=== PATIENT | female | born 1935 | race Caucasian/White ===

== ENCOUNTER 2017-02-06 10:37 | Inpatient (IN) ==
[2017-02-06] MEDS ORDERED: HYDROmorphone 2 MG/1 ML VIAL IV STA (11:16)
[2017-02-06] MEDS ORDERED: ONDANSETRON 4 MG/2 ML VIAL IV STA (11:16)
--- NOTE | 2017-02-06 11:20 | Emergency Department Note ---
Arrival - Arrival Chief Complaint: Fall Stated Complaint: fall; leg pain ED Nursing Triage Note: pt brought by EMS for evaluation of left leg pain after a fall during the night while in the bathroom. laceration to left lower leg, bandaged by pt's . LLE appears slightly shortened and ext. rotated. morphine 10mg given by EMS. Mode of Arrival: Stretcher Limitations: Language Barrier Source: Significant other Time Seen by Provider: 02/06/17 11:15 - History of Present Illness HPI Narrative: This 81-year-old white female presents approximately 12 hours after a fall in which she injured her left lower extremity. She has not been able to weight- bear on it since. In the fall she did incur a vertical skin tear along the anterior compartment of the left lower extremity. She denies any other injuries but has had a history of multiple fractures of hips, pelvis, shoulder, humerus in the last few years from falls. Although uncomfortable she appears in no acute distress. Her family physician is Dr. romo. Onset (ago): hour(s) (Incident occurred 12 hours ago) Allergies/Adverse Reactions: Allergies Allergy/AdvReac Type Severity Reaction Status Date / Time No Known Allergies Allergy Verified 02/06/17 10:51 Home Medications: Home Medications Medication Instructions Recorded Confirmed Type Cetirizine Tab [ZyrTEC Tab] 10 mg PO BEDTIME PRN 09/13/15 02/06/17 History Theophylline ER Cap (24 Hr) 300 mg PO DAILY 09/13/15 02/06/17 History [Armani-24] traZODone [Desyrel] 150 mg PO BEDTIME 09/13/15 02/06/17 History Potassium Chloride Cap/Tab [Micro 8 meq PO DAILY #30 capsule 12/19/15 02/06/17 Rx K] cycloSPORINE OPH EMUL [Restasis] 1 drop BOTH EYES BID 11/22/16 02/06/17 History Gabapentin Cap/Tab [Neurontin 300 mg PO BEDTIME 11/23/16 02/06/17 History Cap/Tab] Montelukast Tab [Singulair Tab] 10 mg PO BEDTIME 11/23/16 02/06/17 History HYDROcodone/ACETAMIN 10-325 [[place] 1 tablet PO TID PRN tablet 12/25/16 Rx 10-325] Albuterol Sulfate [Ventolin HFA] 2 puff INH Q4H PRN 02/06/17 02/06/17 History Atorvastatin [Lipitor] 20 mg PO BEDTIME 02/06/17 02/06/17 History Duloxetine HCl [Duloxetine] 30 mg PO DAILY 02/06/17 02/06/17 History Review of System - Review of System 12 point system: reviewed and no additional remarkable complaints except as stated - Review of System Constitutional: Present: as per HPI Musculoskeletal: Present: as per HPI Medical,Surgical,& Family Hx - Medical History Cardio: History of: Cardiac Dysrhythmia, Hypertension No history of: Aneurysm, Cerebrovascular Disease, Congenital Heart Disease, CHF, CAD, [place], Pacemaker, PVD, Valvular Heart Disease, Cardiovascular Problems Psychological: History of: Anxiety Disorders, Psychiatric/Substance Abuse Tx, Psychiatric Problems (depressed mood aeb helplessness, hopelessness, and poor coping skills) No history of: Behavior Problems, Violent Behavior Neurology: No history of: Brain Aneurysm, Cerebral Hemorrhage, Cerebrovascular Accident , Cerebral Palsy, Dementia, Migraine, Multiple Sclerosis, Parkinson's Disease, Peripheral Neuropathy, Seizures, TIA, Vertigo, Neurologocal Cancer Endocrine: History of: Dyslipidemia Rheumatology: History of;: Rheumatoid Arthritis Respiratory: History of: Asthma, Bronchitis, COPD, Pneumonia (in the past) No history of: Intubation, Obstructive Sleep Apnea, Pulmonary Embolism, Pulmonary Hypertension, Lung Cancer, Respiratory Problems Renal: No history of: Renal (Kidney) Cancer, Dialysis, Renal Failure, Renal Problems Genitourinary: No history of: Bladder Problem, Kidney Stones, Recurring Urinary Tract Infections, Genitourinary Cancer, Problems Gastrointestinal: History of: Hemorrhoids No history of: Bowel Obstruction, Clostridium Difficile, Crohn's Disease, Diverticulitis/ Diverticulosis, Esophageal Varices, GERD, Gastrointestinal Bleed , Hematochezia, Hepatitis, Liver Problems, Pancreatitis, Polyps, Ulcerative Colitis, Gastrointestinal Cancer, GI Problems Musculoskeletal: History of: Back/Neck Problems, Degenerative Disk Disease, Osteoporosis, Musculoskeletal Problems (MULTI FUSIONS AND BACK PROCEDURES) No history of: Musculoskeletal Cancer Hematology: History of: Anemia Reproductive: No history of: Abnormal Pap Smear, Breast Cancer, Endometriosis, Ectopic , Ovarian Cysts, Complication, Sexually Transmitted Disorders , Reproductive Cancer, Reproductive Problems - Surgical History Cardiac Surgeries: Patient Denies: Femoral-Popliteal Bypass Graft, Cardiac Catheterization, Cardiac Surgery, Carotid Endarterectomy, Internal Defibrillator, Vascular Access Devices Thoracic Surgeries: Patient denies;: Kidney (Renal Surgery), Lithotripsy, Nephrectomy, Lobectomy Neurologic Surgeries: Patient denies: Brain Aneurysm, Cerebral Hemorrhage, Neurologic Surgery HEENT Surgeries: Surgical HX of: Eye Surgery (bilateral cataract surgery), Tonsilectomy & Adenoidectomy Patient denies: Carotid Endarterectomy Abdominal Surgeries: Surgical HX of: Abdominal Surgery, Appendectomy, Colonoscopy, EGD Patient denies: Cholecystectomy, Gastric Bypass Surgery, Hernia Repair, Splenectomy Reproductive Surgeries: Surgical HX of;: Gynecologic Surgery, Hysterectomy (1973 ) Patient denies;: Cystoscopy, Genitourinary Surgery Orthopedic Surgeries: Surgical HX of;: Orthopedic Surgery (bilateral knees, right hip) - Family History Family History: Reports;: Family Cancer (sister, brother), Family Diabetes ( sister), Family Heart Disease (brother, mother, father), Family Hypertension ( sister), Family Stroke (mother) - Social History Smoking Status: Never smoker Frequency of Alcohol Use: None Type of Drug Use: None Exam Physical Examination: GENERAL: Frail elderly white female in no acute distress. HEENT: Normocephalic. No trauma. Moist mucous membranes. EOMI. PERRLA. ENT NML NECK: Supple. No adenopathy. CARDIAC: Regular. No murmurs. Heart rate 117 CHEST: Clear to auscultation. No respiratory distress. O2 sat 98% ABDOMEN: Soft. Nontender. Active bowel sounds. EXTREMITIES: No trauma. Left lower extremity shortened and externally rotated with distal pulses intact. No pedal edema. SKIN: No diaphoresis. No rash. NEURO: Alert. Oriented to person and place, time not so well. Motor, sensory, vibratory intact. No focal deficits. Vital Signs: Vital Signs Temperature 98.9 F 02/06/17 10:37 Pulse Rate 117 H 02/06/17 10:37 Respiratory Rate 16 02/06/17 10:37 Blood Pressure 123/75 02/06/17 10:37 O2 Sat by Pulse Oximetry 98 02/06/17 10:37 Course - Reevaluation(s) Reevaluation #1: Discussed with patient the back she has a fracture and will need repair. She last ate last night. - Consultations Consultation #1: Discussed with hospitalist service will admit for perioperative care Consultation #2: Discussed with Dr. Vincent who will repair the hip today. Results - Labs CBC & BMP: 02/06/17 11:27 02/06/17 11:27 Labs: I have reviewed the laboratory and noted the gross normality excepting for the very depressed hematocrit. - Impressions EKG: Sinus tachycardia at 110 normal MI interval and duration left atrial enlargement diffuse nonspecific ST changes no acute injury pattern noted - Diagnostic Findings Procedure: Chest x-ray: image reviewed by me, report reviewed by me (No interval change and chronic interstitial scarring.) Disposition Clinical Impression: left hip fracture, Severe anemia Case discussed with: patient, patient's family Disposition: Still a Patient Condition: Guarded Time of Disposition: 12:04
[2017-02-06 11:30] LABS: Basophils % 0.4 % (0.0-0.8); Eosinophils # 0.1 10*3/uL (0.0-0.87); Eosinophils % 0.6 % (0.00-10.9); Hemoglobin 8.1 GM/DL (12.0-16.0); Immature Granulocytes % 0.6 %; Immature Granulocytes Absolute 0.06 #; Lymphocytes # 1.2 10*3/uL (1.4-4.0); Lymphocytes % 11.4 % (21.3-54.2); Mean Corpuscular HGB Conc 33.8 GM/DL (32-36); Mean Corpuscular Hemoglobin 33 PG (27-34); Mean Corpuscular Volume 97.6 FL (87-102); Monocytes # 1.9 10*3/uL (0.11-0.8); Monocytes % 18.5 % (1.7-12.7); Neutrophils % 68.5 % (38.7-73.9); Platelet Count 196 T/CUMM (130-400); Red Blood Count 2.46 MC/CUMM (3.8-5.5); Red Cell Distribution Width 13.3 % (9.3-17.3); White Blood Count 10.1 T/CUMM (4-12)
[2017-02-06 11:41] LABS: PT Patient Result 10.3 SECS; Partial Thromboplastin Time 28.2 SECS (0-40)
[2017-02-06] MEDS ORDERED: ONDANSETRON 4 MG/2 ML VIAL ONE (11:48)
[2017-02-06] MEDS ORDERED: HYDROmorphone 2 MG/1 ML VIAL ONE (11:48)
[2017-02-06 11:51] LABS: Band Neutrophils 2 % (0-10); Hypochromasia 1+; Lymphocytes 13 % (20-55); Segmented Neutrophils 69 % (50-85); Total Cells Counted 100
--- NOTE | 2017-02-06 11:58 | XRay Report ---
XR hip 2v w pelvis LT Indication: Left hip pain status post fall. Comparison: AP pelvis 11/22/2016. Technique: AP pelvis with additional AP views of the left hip in internal and external rotation. Findings: An acute severely comminuted fracture of the intratrochanteric left hip is demonstrated with moderate varus angulation and moderate displacement of fracture fragments associated. Previous repair of the right hip has occurred with placement of a gamma nail. Osseous structures of the pelvis and lower lumbar spine demonstrate no distinct evidence of acute fracture. Impression: 1. Severely comminuted fracture of the intratrochanteric left hip is present as detailed. 02/06/2017 11:54 AM PROCEDURE INTERPRETED AT [facility] DEPARTMENT OF RADIOLOGY Final Report Signed by: Dr. Phani Starkey
[2017-02-06 12:00] LABS: Bilirubin,Total 0.6 MG/DL (0.2-1.0); Calcium 8.4 MG/DL (8.5-10.1); Osmolality,Calculated 280.5 MOS/KG (273-304); Potassium 4.3 MMOL/L (3.5-5.1)
--- NOTE | 2017-02-06 12:01 | XRay Report ---
XR chest 1V portable Indication: Shortness of breath. Comparison: Chest x-ray 11/22/2016. Technique: Portable AP chest was performed. Findings: The heart size appears within normal limits. Pulmonary vasculature demonstrates no specific abnormality. Hilar structures demonstrate fairly symmetric appearance. The lungs demonstrate interstitial prominence bilaterally stable appearance prior study. Additional calcifications are suggested within the left perihilar region and left infrahilar lung which are little changed from comparison study. Prior vertebroplasty of L1 is stable. No acute fractures are demonstrated. Prior fracture of the right humeral neck is not completely imaged on this study. Additional prior vertebroplasty at T6 is demonstrated. Distal right clavicle fracture is stable. Impression: 1. No active process is clearly demonstrated. 2. Previously demonstrated fracture of the right humeral neck is not included completely on the study. 3. No acute osseous findings are demonstrated. 02/06/2017 11:55 AM PROCEDURE INTERPRETED AT [facility] DEPARTMENT OF RADIOLOGY Final Report Signed by: Dr. Phani Starkey
[2017-02-06 12:15] LABS: Apearance,Urine CLOUDY (Clear); Bacteria,Urine Occasional /HPF (Few); Bilirubin,Urine Negative (Negative); Blood, Urine Negative (Negative); Glucose,Urine (UA) Negative (Negative); Hyaline Casts,Urine 13 /LPF (0-3); Ketones,Urine Negative (Negative); Mucus,Urine Many /LPF (Occasional); Nitrite,Urine Negative (Negative); Protein,Urine Negative; RBC,Urine 20 /HPF (0-4); Urine Color Yellow (Yellow); Urine Specific Gravity 1.023 (1.001-1.035); Urine Urobilinogen < 2.0 EU/DL (0.2-1.0); WBC,Urine 8 /HPF (0-6)
--- NOTE | 2017-02-06 12:32 | EKG Report ---
Stationary ECG Study [facility] ER Test Date: 02/06/2017 11:42:13 AM Pat Name: FREDA AZEVEDO Department: [facility] Gender: F [employer]: : 1935 Requested by: Pete Hawk Order Number: [id number] Reading MD: JUAN ANTONIO ANTONIO Intervals [place] Rate: 110 P: 61 NM: 120 QRS: 98 QRSD: 76 T: 2 QT: 299 QTc: 364 Interpretive Statements SINUS TACHYCARDIA POSSIBLE LEFT ATRIAL ENLARGEMENT BORDERLINE RIGHT AXIS DEVIATION Electronically Signed On 02-06-17 14:12:27 CDT by JUAN ANTONIO ANTONIO [email or web address]
--- NOTE | 2017-02-06 12:52 | Orthopedic Consult Note ---
History of Present Illness Chief complaint: Left hip pain History of present illness: Ms. Haynes is a 81 year old female who had a fall last night resulting in a comminuted left intertrochanteric femur fracture. She was seen in the emergency department with her at her bedside. She complains of left hip pain. Denies any other complaints. States was a mechanical fall. She is a history of multiple falls resulting in a surgical fixation of her right hip 2 years ago and a recent fall in December where she sustained a right proximal humerus fracture. The humerus fracture was treated conservatively. She denies any numbness or tingling. Denies any other complaints. Pain is aggravated with motion and alleviated with immobilization Home Medications Medication Instructions Recorded Confirmed Type Cetirizine Tab [ZyrTEC Tab] 10 mg PO BEDTIME PRN 09/13/15 02/06/17 History Theophylline ER Cap (24 Hr) 300 mg PO DAILY 09/13/15 02/06/17 History [Armani-24] traZODone [Desyrel] 150 mg PO BEDTIME 09/13/15 02/06/17 History Potassium Chloride Cap/Tab [Micro 8 meq PO DAILY #30 capsule 12/19/15 02/06/17 Rx K] cycloSPORINE OPH EMUL [Restasis] 1 drop BOTH EYES BID 11/22/16 02/06/17 History Gabapentin Cap/Tab [Neurontin 300 mg PO BEDTIME 11/23/16 02/06/17 History Cap/Tab] Montelukast Tab [Singulair Tab] 10 mg PO BEDTIME 11/23/16 02/06/17 History HYDROcodone/ACETAMIN 10-325 [[place] 1 tablet PO TID PRN tablet 12/25/16 Rx 10-325] Albuterol Sulfate [Ventolin HFA] 2 puff INH Q4H PRN 02/06/17 02/06/17 History Atorvastatin [Lipitor] 20 mg PO BEDTIME 02/06/17 02/06/17 History Duloxetine HCl [Duloxetine] 30 mg PO DAILY 02/06/17 02/06/17 History Allergies Allergy/AdvReac Type Severity Reaction Status Date / Time No Known Allergies Allergy Verified 02/06/17 10:51 12 point system: reviewed and no additional remarkable complaints except as stated Medical,Surgical,& Family Hx - Medical History Cardio: History of: Cardiac Dysrhythmia, Hypertension No history of: Aneurysm, Cerebrovascular Disease, Congenital Heart Disease, CHF, CAD, [place], Pacemaker, PVD, Valvular Heart Disease, Cardiovascular Problems Psychological: History of: Anxiety Disorders, Psychiatric/Substance Abuse Tx, Psychiatric Problems (depressed mood aeb helplessness, hopelessness, and poor coping skills) No history of: Behavior Problems, Violent Behavior Neurology: No history of: Brain Aneurysm, Cerebral Hemorrhage, Cerebrovascular Accident , Cerebral Palsy, Dementia, Migraine, Multiple Sclerosis, Parkinson's Disease, Peripheral Neuropathy, Seizures, TIA, Vertigo, Neurologocal Cancer Endocrine: History of: Dyslipidemia Rheumatology: History of;: Rheumatoid Arthritis Respiratory: History of: Asthma, Bronchitis, COPD, Pneumonia (in the past) No history of: Intubation, Obstructive Sleep Apnea, Pulmonary Embolism, Pulmonary Hypertension, Lung Cancer, Respiratory Problems Renal: No history of: Renal (Kidney) Cancer, Dialysis, Renal Failure, Renal Problems Genitourinary: No history of: Bladder Problem, Kidney Stones, Recurring Urinary Tract Infections, Genitourinary Cancer, Problems Gastrointestinal: History of: Hemorrhoids No history of: Bowel Obstruction, Clostridium Difficile, Crohn's Disease, Diverticulitis/ Diverticulosis, Esophageal Varices, GERD, Gastrointestinal Bleed , Hematochezia, Hepatitis, Liver Problems, Pancreatitis, Polyps, Ulcerative Colitis, Gastrointestinal Cancer, GI Problems Musculoskeletal: History of: Back/Neck Problems, Degenerative Disk Disease, Osteoporosis, Musculoskeletal Problems (MULTI FUSIONS AND BACK PROCEDURES) No history of: Musculoskeletal Cancer Hematology: History of: Anemia Reproductive: No history of: Abnormal Pap Smear, Breast Cancer, Endometriosis, Ectopic , Ovarian Cysts, Complication, Sexually Transmitted Disorders , Reproductive Cancer, Reproductive Problems - Surgical History Cardiac Surgeries: Patient Denies: Femoral-Popliteal Bypass Graft, Cardiac Catheterization, Cardiac Surgery, Carotid Endarterectomy, Internal Defibrillator, Vascular Access Devices Thoracic Surgeries: Patient denies;: Kidney (Renal Surgery), Lithotripsy, Nephrectomy, Lobectomy Neurologic Surgeries: Patient denies: Brain Aneurysm, Cerebral Hemorrhage, Neurologic Surgery HEENT Surgeries: Surgical HX of: Eye Surgery (bilateral cataract surgery), Tonsilectomy & Adenoidectomy Patient denies: Carotid Endarterectomy Abdominal Surgeries: Surgical HX of: Abdominal Surgery, Appendectomy, Colonoscopy, EGD Patient denies: Cholecystectomy, Gastric Bypass Surgery, Hernia Repair, Splenectomy Reproductive Surgeries: Surgical HX of;: Gynecologic Surgery, Hysterectomy (1973 ) Patient denies;: Cystoscopy, Genitourinary Surgery Orthopedic Surgeries: Surgical HX of;: Orthopedic Surgery (bilateral knees, right hip) - Family History Family History: Reports;: Family Cancer (sister, brother), Family Diabetes ( sister), Family Heart Disease (brother, mother, father), Family Hypertension ( sister), Family Stroke (mother) - Social History Smoking Status: Never smoker Frequency of Alcohol Use: None Type of Drug Use: None Exam - Constitutional Vitals: Period Temp Pulse Resp BP Sys/[place] Pulse Ox Last 24 Hr 98.9 F-98.9 F 117-117 16-16 123-123/75-75 98 General appearance: under weight, other (Chronically ill-appearing) - Head Head exam: Present: normal inspection, normocephalic, atraumatic - Eye Pupils: Present: FER - ENT ENT exam: Present: normal exam - Neck Neck exam: Present: normal inspection. Absent: tenderness - Respiratory Respiratory exam: Absent: accessory muscle use, wheezes - Cardiovascular Cardiovascular exam: Present: regular rate and rhythm - GI/Abdominal GI/Abdominal exam: Absent: distended, firm - Extremities Exam Extremities exam: Present: normal inspection (Bilateral upper extremity: Good active range of motion fingers and wrist. Compartments are soft. Sensation is intact. Pulses intact distally. Nontender to palpation) - Expanded Left Lower Hip exam: Absent: normal inspection (Left leg held in a shortened and externally rotated position compared to the right. Compartments are soft. Sensations intact. Good active range of motion foot and ankle. Capillary refill brisk) - Neurological Exam Neurological exam: Present: alert, oriented X3, CN II-XII intact - Psychiatric Psychiatric exam: Present: normal affect, normal mood - Skin Skin exam: Present: normal color (Small skin tear to left lower leg) Results - Labs CBC & BMP: 02/06/17 11:27 02/06/17 11:27 Lab Results: I have reviewed the past 24 hour labs - Diagnostic Findings Procedure: X-ray: image reviewed by me, report reviewed by me Assessment and Plan (1) Fracture, intertrochanteric, left femur Status: Acute Assessment and plan: Discussed with the patient and her her significantly comminuted intertrochanteric left femur fracture. Recommend surgical fixation to stabilize a fracture to allow for better healing of the fracture, weightbearing , and hygiene purposes. Discussed the surgery in detail with intramedullary nail as well as the risks of the procedure. Risks include but are not limited to infection, bleeding, hardware failure, malunion, nonunion, need for further surgery, neurovascular injury both local remote, as well as the risk of anesthesia including heart attack, stroke, . They gave full understanding to this, all questions were answered to their satisfaction, they agreed to undergo surgical fixation of her left intertrochanteric femur fracture Because she has not eaten since last night plan for surgical fixation today I discussed with anesthesia starting blood products due to her anemia Discussed with the patient and her probable discharge plan for swing bed due to her multiple falls and to improve her strength and mobility upon discharge from the hospital Current Visit: Yes (2) Anemia Status: Chronic Current Visit: No (3) Fall Status: Acute Current Visit: No
[2017-02-06] MEDS ORDERED: SODIUM CHLORIDE 0.9% 250 ML IV PRN (13:08)
--- NOTE | 2017-02-06 13:24 | Hospitalist History & Physical ---
Assessment and Plan (1) Fracture, intertrochanteric, left femur Status: Acute Assessment and plan: Pt to undergo repair of left femur fracture. Surgery following. Current Visit: Yes (2) Asthma Status: Chronic Assessment and plan: Pt. is wearing supplemental O2. Not in any acute distress. Home meds to be restarted. After surgery, respiratory status will be reevaluated. Current Visit: No (3) Chronic low back pain Status: Chronic Current Visit: No (4) Debility Status: Chronic Assessment and plan: Consult PT/OT for evaluation. Consult case management for swingbed/rehab placement upon discharge. Current Visit: No History of Present Illness Chief complaint: left hip pain after fall History of present illness: Ms. Haynes is a 81 year old frail white female with a history significant for multiple falls, hypertension, dysrhythmia, anxiety, depression, dyslipidemia, rheumatoid arthritis, asthma, bronchitis, COPD, and pneumonia that presented to the ED today via EMS for complaints of left hip pain after fall yesterday. The patient's is at her bedside and provides some of her history. According to , patient is 2.5 status post recent fall and right humerus fracture. Pt. also had her right hip replaced 2 years ago. The reports that yesterday, the patient was attempting to return to be after leaving the bathroom when she fell. She denies any syncopal episode before the fall. She also denies any head injuries. Patient did suffer a laceration to the left lateral leg and her bandaged. On examination in the ED, the patient was not in any acute distress but confirmed pain. Left lower extremity appears slightly externally rotated. Hip x-ray revealed severely communicated fracture of the intra-trochanteric left hip. Surgery was notified by the ER physician and evaluated the patient. She will be taken to surgery and risks and benefits have been detailed. Pt. has a low risk of major cardiac event. Pt's case has been discussed with Dr. Campbell and Dr. Stafford and the patient will be admitted to the hospitalist service for treatment. Home Medications Medication Instructions Recorded Confirmed Type Cetirizine Tab [ZyrTEC Tab] 10 mg PO BEDTIME PRN 09/13/15 02/06/17 History Theophylline ER Cap (24 Hr) 300 mg PO DAILY 09/13/15 02/06/17 History [Armani-24] traZODone [Desyrel] 150 mg PO BEDTIME 09/13/15 02/06/17 History Potassium Chloride Cap/Tab [Micro 8 meq PO DAILY #30 capsule 12/19/15 02/06/17 Rx K] cycloSPORINE OPH EMUL [Restasis] 1 drop BOTH EYES BID 11/22/16 02/06/17 History Gabapentin Cap/Tab [Neurontin 300 mg PO BEDTIME 11/23/16 02/06/17 History Cap/Tab] Montelukast Tab [Singulair Tab] 10 mg PO BEDTIME 11/23/16 02/06/17 History HYDROcodone/ACETAMIN 10-325 [[place] 1 tablet PO TID PRN tablet 12/25/16 Rx 10-325] Albuterol Sulfate [Ventolin HFA] 2 puff INH Q4H PRN 02/06/17 02/06/17 History Atorvastatin [Lipitor] 20 mg PO BEDTIME 02/06/17 02/06/17 History Duloxetine HCl [Duloxetine] 30 mg PO DAILY 02/06/17 02/06/17 History Allergies Allergy/AdvReac Type Severity Reaction Status Date / Time No Known Allergies Allergy Verified 02/06/17 10:51 Medical,Surgical,& Family Hx - Medical History Cardio: History of: Cardiac Dysrhythmia, Hypertension No history of: Aneurysm, Cerebrovascular Disease, Congenital Heart Disease, CHF, CAD, [place], Pacemaker, PVD, Valvular Heart Disease, Cardiovascular Problems Psychological: History of: Anxiety Disorders, Psychiatric/Substance Abuse Tx, Psychiatric Problems (depressed mood aeb helplessness, hopelessness, and poor coping skills) No history of: Behavior Problems, Violent Behavior Neurology: No history of: Brain Aneurysm, Cerebral Hemorrhage, Cerebrovascular Accident , Cerebral Palsy, Dementia, Migraine, Multiple Sclerosis, Parkinson's Disease, Peripheral Neuropathy, Seizures, TIA, Vertigo, Neurologocal Cancer Endocrine: History of: Dyslipidemia Rheumatology: History of;: Rheumatoid Arthritis Respiratory: History of: Asthma, Bronchitis, COPD, Pneumonia (in the past) No history of: Intubation, Obstructive Sleep Apnea, Pulmonary Embolism, Pulmonary Hypertension, Lung Cancer, Respiratory Problems Renal: No history of: Renal (Kidney) Cancer, Dialysis, Renal Failure, Renal Problems Genitourinary: No history of: Bladder Problem, Kidney Stones, Recurring Urinary Tract Infections, Genitourinary Cancer, Problems Gastrointestinal: History of: Hemorrhoids No history of: Bowel Obstruction, Clostridium Difficile, Crohn's Disease, Diverticulitis/ Diverticulosis, Esophageal Varices, GERD, Gastrointestinal Bleed , Hematochezia, Hepatitis, Liver Problems, Pancreatitis, Polyps, Ulcerative Colitis, Gastrointestinal Cancer, GI Problems Musculoskeletal: History of: Back/Neck Problems, Degenerative Disk Disease, Osteoporosis, Musculoskeletal Problems (MULTI FUSIONS AND BACK PROCEDURES) No history of: Musculoskeletal Cancer Hematology: History of: Anemia Reproductive: No history of: Abnormal Pap Smear, Breast Cancer, Endometriosis, Ectopic , Ovarian Cysts, Complication, Sexually Transmitted Disorders , Reproductive Cancer, Reproductive Problems - Surgical History Cardiac Surgeries: Patient Denies: Femoral-Popliteal Bypass Graft, Cardiac Catheterization, Cardiac Surgery, Carotid Endarterectomy, Internal Defibrillator, Vascular Access Devices Thoracic Surgeries: Patient denies;: Kidney (Renal Surgery), Lithotripsy, Nephrectomy, Lobectomy Neurologic Surgeries: Patient denies: Brain Aneurysm, Cerebral Hemorrhage, Neurologic Surgery HEENT Surgeries: Surgical HX of: Eye Surgery (bilateral cataract surgery), Tonsilectomy & Adenoidectomy Patient denies: Carotid Endarterectomy Abdominal Surgeries: Surgical HX of: Abdominal Surgery, Appendectomy, Colonoscopy, EGD Patient denies: Cholecystectomy, Gastric Bypass Surgery, Hernia Repair, Splenectomy Reproductive Surgeries: Surgical HX of;: Gynecologic Surgery, Hysterectomy (1973 ) Patient denies;: Cystoscopy, Genitourinary Surgery Orthopedic Surgeries: Surgical HX of;: Orthopedic Surgery (bilateral knees, right hip) - Family History Family History: Reports;: Family Cancer (sister, brother), Family Diabetes ( sister), Family Heart Disease (brother, mother, father), Family Hypertension ( sister), Family Stroke (mother) - Social History Smoking Status: Never smoker Frequency of Alcohol Use: None Type of Drug Use: None Marital Status: Lives With:: Spouse Functional capacity: uses cane/walker - Constitutional Constitutional: Present: weakness. Absent: chills, fever(s) - EENT Eyes: Present: loss of vision, requires corrective lense Ears: Present: decreased hearing Nose, mouth and throat: Absent: headache(s) - Cardiovascular Cardiovascular: Absent: chest pain at rest, chest pain with activity, dyspnea - Respiratory Respiratory: Absent: hemoptysis - Gastrointestinal Gastrointestinal: Absent: abdominal pain, nausea, vomiting - Genitourinary Genitourinary: Absent: hematuria - Musculoskeletal Musculoskeletal: Present: limited range of motion - Neurological Neurological: Absent: confusion, dizziness - Psychiatric Psychiatric: Present: anxiety, depression - Endocrine Endocrine: Present: cold intolerance - Hematologic/Lymphatic Hematologic/Lymphatic: Present: easy bruising Exam - Constitutional Vitals: Period Temp Pulse Resp BP Sys/Santoyo Pulse Ox Last 24 Hr 98.9 F-98.9 F 109-117 16-18 99-123/51-75 93-100 General appearance: no acute distress, under weight, other (frail) - Head Head exam: Present: normal inspection, normocephalic - Eye Eye exam: Present: EOMI. Absent: scleral icterus Pupils: Present: FER. Absent: fixed - Neck Neck exam: Present: normal inspection - Respiratory Respiratory exam: Present: clear to auscultation bilaterally - Cardiovascular Cardiovascular exam: Present: tachycardia. Absent: JVD - GI/Abdominal GI/Abdominal exam: Present: normal bowel sounds, soft. Absent: tenderness - Extremities Exam Extremities exam: Absent: edema - Expanded Left Lower Lower leg exam: Present: tenderness, laceration (left lateral leg has laceration ). Absent: full ROM Gait: Present: not tested/not observed - Neurological Exam Neurological exam: Present: alert, oriented X3 - Psychiatric Psychiatric exam: Present: normal affect, normal mood - Skin Skin exam: Present: normal color, warm, dry Results - Labs CBC & BMP: 02/06/17 11:27 02/06/17 11:27 Lab Results: I have reviewed the past 24 hour labs - EKG EKG results: interpreted by DK
[2017-02-06] MEDS ORDERED: ceFAZolin 1,000 MG VIAL ONE (14:32)
[2017-02-06] MEDS ORDERED: FUROSEMIDE 20 MG/2 ML VIAL ONE (15:16)
[2017-02-06] MEDS ORDERED: MORPHINE 2 MG/1 ML SYRINGE IV PRN (15:53)
[2017-02-06] MEDS ORDERED: MAGNESIUM HYDROXIDE SUSP 30 ML UDCUP PO PRN (15:53)
[2017-02-06] MEDS ORDERED: ONDANSETRON 4 MG/2 ML VIAL IV PRN ×2 (15:53→17:26)
--- NOTE | 2017-02-06 15:58 | Anesthesia Procedures ---
Anesthesia Procedures - Arterial Line Consent obtained arterial line: written consent Time out performed arterial line: Yes Size (Gauge): 20 Technique used arterial line: guide wire technique Post-Procedure: line sutured into place, dry sterile dressing placed Patient tolerated procedure arterial line: well Complications art line: none Site: left
--- NOTE | 2017-02-06 16:04 | Operative Note ---
Date of procedure: 02/06/17 Pre-op diagnosis: Comminuted left intertrochanteric femur fracture Post-op diagnosis: same Procedure: Procedures: Open reduction internal fixation of complex comminuted left intertrochanteric femur fracture with an intramedullary nail Interpretation of fluoroscopy by surgeon Patient seen preoperatively. Consent and site verified with the patient and her . Left hip marked. Patient then taken to the OR by the anesthesia team. After adequate anesthesia with a spinal block was obtained, she was placed in the fracture table. Multiplanar fluoroscopy was utilized to reduce her fracture. I reduced the fracture was reduced with traction abduction and internal rotation. Fluoroscopy utilized during the fracture reduction. Left hip prepped and draped in usual sterile orthopedic fashion. Timeout was taken Landmarks of the hip were identified under fluoroscopy. 4 cm incision made just proximal to the greater trochanter. IT band split in line with the fascia. Fracture was manipulated and reduced with a combination of utilizing a home and to reduce the apex anterior deformity and utilizing digital manipulation to read store the proper position of the greater trochanter. Guidewire was then inserted and the tip of the greater trochanter and advanced into the femoral canal. Correct position was identified and checked under fluoroscopy. Starting reamer was then utilized. A ball-tipped guidewire was then advanced into the femoral canal and the femur was measured. Femur was reamed in a stepwise fashion up to a 13 mm reamer. Nail inserted over the ball- tipped guidewire and guidewire removed. Fluoroscopy was utilized to ensure appropriate position of the central screw. [place] guidewire was then inserted in the length measured approximately 90 mm an 85 mm helical blade was selected and inserted according logistics supervisor's technique. Nail was then compressed in a near anatomic position was achieved. Screw was locked into position. 2 distal screws were then inserted utilizing perfect [place] technique with fluoroscopy. Most distal screw was placed in a dynamic position in the more proximal screw was placed in a locking hole. Incisions were then copiously irrigated and closed with 0 Vicryl for the abductor muscle, IT band, and deep subcutaneous layer. 3-0 Vicryl for the subcutaneous layer. Shahrzad for the skin. Sterile dressing applied. Patient was taken to PACU by anesthesia in a stable condition Implants: Synthes TFNA 11 mm x 3 40 mm 85 mm helical blade Anesthesia: spinal Surgeon / Physician: Ajay Newell Estimated blood loss: other (100ml) Specimens: none sent Condition: stable Disposition: PACU Results - Labs CBC & BMP: 02/06/17 11:27 02/06/17 11:27 Discharge Plan - Discharge Medications No Action cycloSPORINE OPH EMUL [Restasis] 1 drop BOTH EYES BID Montelukast Tab [Singulair Tab] 10 mg PO BEDTIME Atorvastatin [Lipitor] 20 mg PO BEDTIME Gabapentin Cap/Tab [Neurontin Cap/Tab] 300 mg PO BEDTIME Albuterol Sulfate [Ventolin HFA] 2 puff INH Q4H PRN PRN Reason: Shortness Of Breath/Wheezing Duloxetine HCl [Duloxetine] 30 mg PO DAILY traZODone [Desyrel] 150 mg PO BEDTIME Theophylline ER Cap (24 Hr) [[place]-24] 300 mg PO DAILY Cetirizine Tab [ZyrTEC Tab] 10 mg PO BEDTIME PRN PRN Reason: Allergy Symptoms Potassium Chloride Cap/Tab [Micro K] 8 meq PO DAILY #30 capsule HYDROcodone/ACETAMIN 10-325 [[place] 10-325] 1 tablet PO TID PRN tablet PRN Reason: Pain Moderate (4-7) - Follow Up or Referral - Forms/Instructions
--- NOTE | 2017-02-06 16:07 | XRay Report ---
Intraoperative fluoroscopy. Fluoroscopy time, 140 seconds. Indication: Open reduction and internal fixation of a left femoral fracture. 8 digital images were obtained which are presumed to serve the clinical purposes. They demonstrate intramedullary kassidy placement within the left femur, to stabilize the trochanteric fracture. PROCEDURE INTERPRETED AT [facility] OF [facility] Final Report Signed by: Dr. Mendy Mariee
[2017-02-06 16:39] LABS: Basophils % 0.3 % (0.0-0.8); Eosinophils % 0.1 % (0.00-10.9); Hematocrit 34.5 VOL% (35.7-47.0); Hemoglobin 11.5 GM/DL (12.0-16.0); Immature Granulocytes % 0.8 %; Immature Granulocytes Absolute 0.12 #; Lymphocytes # 1.2 10*3/uL (1.4-4.0); Lymphocytes % 8.1 % (21.3-54.2); Mean Corpuscular HGB Conc 33.3 GM/DL (32-36); Mean Corpuscular Hemoglobin 30 PG (27-34); Mean Corpuscular Volume 88.7 FL (87-102); Mean Platelet Volume 10.1 FL (9.6-12.0); Monocytes % 12.8 % (1.7-12.7); Neutrophils % 77.9 % (38.7-73.9); Platelet Count 181 T/CUMM (130-400); Red Blood Count 3.89 MC/CUMM (3.8-5.5); Red Cell Distribution Width 19.3 % (9.3-17.3); White Blood Count 15.3 T/CUMM (4-12)
[2017-02-06 17:02] LABS: Calcium 8.1 MG/DL (8.5-10.1); Osmolality,Calculated 279.7 MOS/KG (273-304)
[2017-02-06] MEDS ORDERED: ACETAMINOPHEN 325 MG TABLET PO PRN (17:26)
[2017-02-06] MEDS ORDERED: CETIRIZINE 10 MG TABLET PO PRN (17:38)
[2017-02-06] MEDS ORDERED: ALBUTEROL 2.5 MG/3 ML NEB RESP TX PRN (17:38)
--- NOTE | 2017-02-06 17:56 | XRay Report ---
2 views of the left femur. Indication: Postoperative. Surgical skin jaime project over the left hip. There is air in the soft tissues. There has been placement of an intramedullary kassidy within the left femur to stabilize intertrochanteric fracture. Hardware appears to be in good position. No evidence of dislocation. Femoral artery calcification. Degenerative changes at the knee and hip. Previous vertebroplasty at L4. Impression: Expected postoperative appearance. PROCEDURE INTERPRETED AT [facility] DEPARTMENT OF RADIOLOGY Final Report Signed by: Dr. Mendy Mariee
[2017-02-06] MEDS: cycloSPORINE OPH EMUL 1 VIAL BOTH EYES SCH (21:13)
[2017-02-06] MEDS: GABAPENTIN 300 MG CAPSULE PO SCH (21:13)
[2017-02-06] MEDS: MONTELUKAST 10 MG TABLET PO SCH (21:13)
[2017-02-07 06:34] LABS: Basophils % 0.2 % (0.0-0.8); Eosinophils % 0.1 % (0.00-10.9); Hematocrit 28.4 VOL% (35.7-47.0); Hemoglobin 9.5 GM/DL (12.0-16.0); Immature Granulocytes % 0.6 %; Immature Granulocytes Absolute 0.06 #; Lymphocytes # 1.4 10*3/uL (1.4-4.0); Lymphocytes % 14.6 % (21.3-54.2); Mean Corpuscular HGB Conc 33.5 GM/DL (32-36); Mean Corpuscular Hemoglobin 29 PG (27-34); Mean Corpuscular Volume 87.1 FL (87-102); Mean Platelet Volume 10.2 FL (9.6-12.0); Monocytes % 20.6 % (1.7-12.7); Neutrophils # 6.3 10*3/uL (1.4-7.4); Neutrophils % 63.9 % (38.7-73.9); Platelet Count 206 T/CUMM (130-400); Red Blood Count 3.26 MC/CUMM (3.8-5.5); Red Cell Distribution Width 20.3 % (9.3-17.3); White Blood Count 9.9 T/CUMM (4-12)
--- NOTE | 2017-02-07 06:51 | Hospitalist Progress Note ---
Assessment and Plan - Time spent with patient Time spent with patient: Less than 30 minutes (1) Fracture, intertrochanteric, left femur Status: Acute Assessment and plan: Patient is status post open reduction internal fixation left intertrochanteric fracture. Postop care and DVT prophylaxis per orthopedic service. Current Visit: Yes (2) UTI (urinary tract infection) Status: Acute Assessment and plan: Cultures are pending. Continue empiric antibiotics. Current Visit: Yes (3) Asthma Status: Chronic Assessment and plan: Stable at this time without shortness of breath or wheezing. Continue current medical regimen and O2 supplementation. Current Visit: No (4) Anemia Status: Chronic Assessment and plan: Suspect she had chronic anemia with a decrease in hemoglobin and hematocrit overnight which was secondary to acute blood loss. Currently asymptomatic and otherwise hemodynamically stable. We will continue to follow. Current Visit: No (5) Chronic low back pain Status: Chronic Assessment and plan: Continue home medical regimen. Current Visit: No Hospitalist: Subjective Interval history: Mrs. Haynes is doing well this morning. She complains of a sore throat but denies any chest pain, shortness breath, nausea, vomiting, diarrhea. Pain appears to be well controlled. Exam - Constitutional Vitals: Period Temp Pulse Resp BP Sys/Santoyo Pulse Ox Last 24 Hr 97 F-99.3 F 85-117 14-18 99-161/51-86 93-100 General appearance: no acute distress - Head Head exam: Present: normocephalic, atraumatic - Eye Eye exam: Present: EOMI Pupils: Present: FER - ENT ENT exam: Present: normal exam - Neck Neck exam: Present: normal inspection - Respiratory Respiratory exam: Present: clear to auscultation bilaterally. Absent: rales, rhonchi, wheezes - Cardiovascular Cardiovascular exam: Present: regular rate and rhythm. Absent: gallop, JVD, tachycardia - GI/Abdominal GI/Abdominal exam: Present: normal bowel sounds, soft. Absent: mass, tenderness , rebound - Extremities Exam Extremities exam: Present: other (Postop left hip). Absent: calf tenderness, edema - Neurological Exam Neurological exam: Present: alert, oriented X3, CN II-XII intact. Absent: motor sensory deficit - Psychiatric Psychiatric exam: Present: normal affect, normal mood. Absent: agitated, anxious - Skin Skin exam: Present: warm, dry. Absent: erythema, rash Results - Labs CBC & BMP: 02/07/17 05:13 02/06/17 16:33 Lab Results: I have reviewed the past 24 hour labs
[2017-02-07 07:17] LABS: Calcium 8.2 MG/DL (8.5-10.1); Osmolality,Calculated 277.7 MOS/KG (273-304); Potassium 4.2 MMOL/L (3.5-5.1); Risk Ratio 2.14; Thyroid Stimulating Hormone 0.735 uIU/ml (0.358-3.74); VLDL CHOLESTEROL 14.8 MG/DL
[2017-02-07 08:07] LABS: Band Neutrophils 2 % (0-10); Hypochromasia 2+; Lymphocytes 19 % (20-55); Microcytosis 1+; Platelet Estimate Adequate; Polychromasia Slight; Segmented Neutrophils 69 % (50-85); Total Cells Counted 100
--- NOTE | 2017-02-07 08:10 | Orthopedic Progress Note ---
Assessment and Plan (1) Fracture, intertrochanteric, left femur Status: Acute Assessment and plan: Continued care: PT, pain control, DVT prophylaxis -Lovenox ordered Discharge planning to swing bed Current Visit: Yes (2) Anemia Status: Chronic Current Visit: No (3) Fall Status: Acute Current Visit: No Orthopedics - Subjective Interval history: Patient seen and examined. Complains of left leg pain, controlled with p.o. meds. Denies other complaints Exam - Constitutional Vitals: Period Temp Pulse Resp BP Sys/Santoyo Pulse Ox Last 24 Hr 97 F-99.3 F 85-117 14-18 99-161/51-86 92-100 - Extremities Exam Extremities exam: Present: normal inspection (Left lower extremity: Dressing clean, dry, intact. Good active range of motion foot and ankle. Compartments are soft. Sensations intact. Capillary refill brisk) Results - Labs CBC & BMP: 02/07/17 05:13 02/07/17 05:13 Lab Results: I have reviewed the past 24 hour labs - Diagnostic Findings Procedure: X-ray: image reviewed by me, report reviewed by me
[2017-02-07] MEDS: ENOXAPARIN 30 MG/0.3 ML SYRINGE SUBCUT SCH (08:39)
[2017-02-07] MEDS: cefTRIAXone 1,000 MG in SODIUM CHLORIDE 0.9% 100 ML IV SCH (08:39)
[2017-02-07] MEDS: THEOPHYLLINE ER (24 HR) 300 MG CAPSULE PO SCH (08:39)
[2017-02-07] MEDS: DULoxetine 30 MG CAPSULE PO SCH (08:40)
[2017-02-07] MEDS: cycloSPORINE OPH EMUL 1 VIAL BOTH EYES SCH ×2 (08:40→20:00)
--- NOTE | 2017-02-07 15:35 | Anesthesia Post-Op ---
Anesthesia Post OP - Post Ansesthetic Evaluation Patient seen in post op: Yes Resp: within normal limits CV: within normal limits Mental: within normal limits Temp: within normal limits [id number]: within normal limits Nausea and Vomiting: within normal limits Pain: within normal limits
[2017-02-07] MEDS: GABAPENTIN 300 MG CAPSULE PO SCH (20:00)
[2017-02-07] MEDS: ATORVASTATIN 20 MG TABLET PO SCH (20:00)
[2017-02-07] MEDS: MONTELUKAST 10 MG TABLET PO SCH (20:00)
[2017-02-08 05:59] LABS: Basophils % 0.3 % (0.0-0.8); Eosinophils # 0.1 10*3/uL (0.0-0.87); Eosinophils % 1.1 % (0.00-10.9); Hematocrit 24.2 VOL% (35.7-47.0); Hemoglobin 8.3 GM/DL (12.0-16.0); Immature Granulocytes % 0.7 %; Immature Granulocytes Absolute 0.06 #; Lymphocytes % 11.6 % (21.3-54.2); Mean Corpuscular HGB Conc 34.3 GM/DL (32-36); Mean Corpuscular Hemoglobin 30 PG (27-34); Mean Corpuscular Volume 87.4 FL (87-102); Mean Platelet Volume 9.5 FL (9.6-12.0); Monocytes # 1.8 10*3/uL (0.11-0.8); Monocytes % 20.4 % (1.7-12.7); Neutrophils # 5.8 10*3/uL (1.4-7.4); Neutrophils % 65.9 % (38.7-73.9); Platelet Count 219 T/CUMM (130-400); Red Blood Count 2.77 MC/CUMM (3.8-5.5); Red Cell Distribution Width 19.5 % (9.3-17.3); White Blood Count 8.8 T/CUMM (4-12)
[2017-02-08 06:32] LABS: Magnesium 2.1 MG/DL (1.8-2.4)
--- NOTE | 2017-02-08 07:04 | Hospitalist Progress Note ---
Assessment and Plan - Time spent with patient Time spent with patient: Less than 30 minutes (1) Fracture, intertrochanteric, left femur Status: Acute Assessment and plan: Patient is status post open reduction internal fixation left intertrochanteric fracture. Postop care and DVT prophylaxis per orthopedic service. Current Visit: Yes (2) UTI (urinary tract infection) Status: Acute Assessment and plan: Cultures revealed no growth thus far.. Continue empiric antibiotics. Current Visit: Yes (3) Asthma Status: Chronic Assessment and plan: Stable at this time without shortness of breath or wheezing. Continue current medical regimen and O2 supplementation. Current Visit: No (4) Anemia Status: Chronic Assessment and plan: Suspect she had chronic anemia with a decrease in hemoglobin and hematocrit overnight which was secondary to acute blood loss. Currently asymptomatic and otherwise hemodynamically stable. We will continue to follow. 02/08/17: She did have a decrease in H&H overnight. She is asymptomatic and otherwise hemodynamically stable. Continue to follow and transfuse as needed. Current Visit: No (5) Chronic low back pain Status: Chronic Assessment and plan: Continue home medical regimen. Current Visit: No Hospitalist: Subjective Interval history: Ms. Haynes complains of some pain of her lower extremities but otherwise denies any chest pain, shortness breath, abdominal pain, nausea, vomiting. Exam - Constitutional Vitals: Period Temp Pulse Resp BP Sys/Santoyo Pulse Ox Last 24 Hr 97.8 F-99.8 F 95-108 17-18 109-112/52-60 92-96 General appearance: no acute distress - Head Head exam: Present: normocephalic, atraumatic - Eye Eye exam: Present: EOMI Pupils: Present: FER - ENT ENT exam: Present: normal exam - Neck Neck exam: Present: normal inspection - Respiratory Respiratory exam: Present: clear to auscultation bilaterally - Cardiovascular Cardiovascular exam: Present: regular rate and rhythm - GI/Abdominal GI/Abdominal exam: Present: normal bowel sounds, soft. Absent: mass, tenderness , rebound - Extremities Exam Extremities exam: Absent: calf tenderness, edema - Neurological Exam Neurological exam: Present: alert, oriented X3, CN II-XII intact. Absent: motor sensory deficit - Psychiatric Psychiatric exam: Present: normal affect, normal mood. Absent: agitated, anxious - Skin Skin exam: Present: warm, dry. Absent: petechiae, rash Results - Labs CBC & BMP: 02/08/17 05:41 02/08/17 05:41 Lab Results: I have reviewed the past 24 hour labs
--- NOTE | 2017-02-08 07:48 | Orthopedic Progress Note ---
Assessment and Plan (1) Fracture, intertrochanteric, left femur Status: Acute Assessment and plan: Continued care: PT, pain control, DVT prophylaxis Discharge planning to swing bed Current Visit: Yes (2) Anemia Status: Chronic Current Visit: No (3) Fall Status: Acute Current Visit: No Orthopedics - Subjective Interval history: Patient seen and examined. No new complaints. Exam - Constitutional Vitals: Period Temp Pulse Resp BP Sys/Santoyo Pulse Ox Last 24 Hr 97.8 F-99.8 F 95-108 17-18 109-112/52-60 93-96 - Extremities Exam Extremities exam: Present: normal inspection (Left lower extremity: Dressing clean, dry, intact. Compartments are soft. Good active range of motion foot and ankle. Capillary refill brisk) Results - Labs CBC & BMP: 02/08/17 05:41 02/08/17 05:41 Lab Results: I have reviewed the past 24 hour labs - Diagnostic Findings Procedure: X-ray: image reviewed by me, report reviewed by me
[2017-02-08 07:59] LABS: Hypochromasia 1+; Lymphocytes 12 % (20-55); Microcytosis Slight; Platelet Estimate Adequate; Segmented Neutrophils 71 % (50-85); Total Cells Counted 100
[2017-02-08] MEDS: cefTRIAXone 1,000 MG in SODIUM CHLORIDE 0.9% 100 ML IV SCH (09:04)
[2017-02-08] MEDS: cycloSPORINE OPH EMUL 1 VIAL BOTH EYES SCH ×3 (09:04→20:14)
[2017-02-08] MEDS: ENOXAPARIN 30 MG/0.3 ML SYRINGE SUBCUT SCH (09:05)
[2017-02-08] MEDS: DULoxetine 30 MG CAPSULE PO SCH (09:05)
[2017-02-08] MEDS: THEOPHYLLINE ER (24 HR) 300 MG CAPSULE PO SCH (09:05)
[2017-02-08] MEDS: ATORVASTATIN 20 MG TABLET PO SCH (20:03)
[2017-02-08] MEDS: MONTELUKAST 10 MG TABLET PO SCH (20:03)
[2017-02-08] MEDS: GABAPENTIN 300 MG CAPSULE PO SCH (20:03)
[2017-02-09 05:53] LABS: Basophils % 0.5 % (0.0-0.8); Eosinophils # 0.2 10*3/uL (0.0-0.87); Eosinophils % 2.4 % (0.00-10.9); Hematocrit 25.5 VOL% (35.7-47.0); Hemoglobin 8.4 GM/DL (12.0-16.0); Immature Granulocytes % 0.8 %; Immature Granulocytes Absolute 0.07 #; Lymphocytes # 1.2 10*3/uL (1.4-4.0); Lymphocytes % 13.6 % (21.3-54.2); Mean Corpuscular HGB Conc 32.9 GM/DL (32-36); Mean Corpuscular Hemoglobin 29 PG (27-34); Mean Corpuscular Volume 88.9 FL (87-102); Mean Platelet Volume 9.4 FL (9.6-12.0); Monocytes # 1.8 10*3/uL (0.11-0.8); Monocytes % 20.4 % (1.7-12.7); Neutrophils # 5.3 10*3/uL (1.4-7.4); Neutrophils % 62.3 % (38.7-73.9); Platelet Count 260 T/CUMM (130-400); Red Blood Count 2.87 MC/CUMM (3.8-5.5); Red Cell Distribution Width 18.6 % (9.3-17.3); White Blood Count 8.6 T/CUMM (4-12)
[2017-02-09 06:11] LABS: Calcium 8.4 MG/DL (8.5-10.1); Osmolality,Calculated 273.8 MOS/KG (273-304); Potassium 4.1 MMOL/L (3.5-5.1)
[2017-02-09 06:49] LABS: Band Neutrophils 1 % (0-10); Eosinophils 4 % (0-10); Hypochromasia 1+; Lymphocytes 13 % (20-55); Microcytosis 1+; Nucleated Red Blood Cells 1 (0-5); Platelet Estimate Normal; Segmented Neutrophils 62 % (50-85); Total Cells Counted 100
[2017-02-09] MEDS ORDERED: SODIUM CHLORIDE 0.9% 250 ML IV PRN (08:23)
--- NOTE | 2017-02-09 08:23 | Orthopedic Progress Note ---
Orthopedics - Subjective Interval history: Sleep arousable hemoglobin in the low 8 range and I discussed with her 2 units PRBC today I believe her counts will continue to decline do not think she has a lot of cardiac reserve she appears to understand and agrees with the discussion. We will continue try to mobilize bed to chair in discharge planning in progress Exam - Constitutional Vitals: Period Temp Pulse Resp BP Sys/Santoyo Pulse Ox Last 24 Hr 97.0 F-98.9 F 92-117 16-20 105-128/52-92 94-98 Results - Labs CBC & BMP: 02/09/17 04:13 02/09/17 04:13
[2017-02-09] MEDS: cefTRIAXone 1,000 MG in SODIUM CHLORIDE 0.9% 100 ML IV SCH (08:33)
[2017-02-09] MEDS: DULoxetine 30 MG CAPSULE PO SCH (09:55)
[2017-02-09] MEDS: THEOPHYLLINE ER (24 HR) 300 MG CAPSULE PO SCH (09:55)
[2017-02-09] MEDS: ENOXAPARIN 30 MG/0.3 ML SYRINGE SUBCUT SCH (09:56)
[2017-02-09] MEDS: cycloSPORINE OPH EMUL 1 VIAL BOTH EYES SCH ×2 (09:56→20:59)
--- NOTE | 2017-02-09 15:36 | Hospitalist Progress Note ---
Assessment and Plan (1) Fracture, intertrochanteric, right femur Status: Acute Assessment and plan: Doing well post fixation. Awaiting for transfer to rehab hospital. Current Visit: No Qualifiers: Encounter type: initial encounter Fracture type: closed Qualified Code(s) : S72.141A - Displaced intertrochanteric fracture of right femur, initial encounter for closed fracture (2) Asthma Status: Chronic Assessment and plan: This is stable. Current Visit: No (3) Anemia Status: Chronic Current Visit: No (4) Debility Status: Chronic Current Visit: No (5) UTI (urinary tract infection) Status: Acute Assessment and plan: Urine culture is negative for the past 48 hours. Current Visit: Yes Hospitalist: Subjective Interval history: The patient is resting. She did receive 2 units packed red blood cells today. Schedule for CBC in a.m. Continue with physical therapy and they are also awaiting for transfer to this rehab hospital. No other acute changes. Exam - Constitutional Vitals: Period Temp Pulse Resp BP Sys/Santoyo Pulse Ox Last 24 Hr 97.0 F-99.7 F 92-117 16-20 92-128/50-92 94-100 General appearance: normal weight - Head Head exam: Present: normal inspection - Eye Eye exam: Present: EOMI - Neck Neck exam: Present: normal inspection - Respiratory Respiratory exam: Present: clear to auscultation bilaterally - Cardiovascular Cardiovascular exam: Present: regular rate and rhythm - GI/Abdominal GI/Abdominal exam: Present: normal bowel sounds - Extremities Exam Extremities exam: Present: normal inspection - Neurological Exam Neurological exam: Present: alert, oriented X3 - Psychiatric Psychiatric exam: Present: normal affect, normal mood - Skin Skin exam: Present: normal color Results - Labs CBC & BMP: 02/09/17 04:13 02/09/17 04:13
[2017-02-09] MEDS: ATORVASTATIN 20 MG TABLET PO SCH (20:59)
[2017-02-09] MEDS: GABAPENTIN 300 MG CAPSULE PO SCH (20:59)
[2017-02-09] MEDS: MONTELUKAST 10 MG TABLET PO SCH (21:00)
[2017-02-10 06:05] LABS: Basophils % 0.5 % (0.0-0.8); Eosinophils # 0.7 10*3/uL (0.0-0.87); Eosinophils % 7.7 % (0.00-10.9); Hematocrit 35.2 VOL% (35.7-47.0); Hemoglobin 11.8 GM/DL (12.0-16.0); Immature Granulocytes Absolute 0.09 #; Lymphocytes # 1.5 10*3/uL (1.4-4.0); Lymphocytes % 17.1 % (21.3-54.2); Mean Corpuscular HGB Conc 33.5 GM/DL (32-36); Mean Corpuscular Hemoglobin 30 PG (27-34); Monocytes # 1.7 10*3/uL (0.11-0.8); Monocytes % 19.2 % (1.7-12.7); Neutrophils # 4.8 10*3/uL (1.4-7.4); Neutrophils % 54.5 % (38.7-73.9); Platelet Count 295 T/CUMM (130-400); Red Cell Distribution Width 16.7 % (9.3-17.3); White Blood Count 8.8 T/CUMM (4-12)
[2017-02-10 06:57] LABS: Eosinophils 6 % (0-10); Lymphocytes 22 % (20-55); Segmented Neutrophils 58 % (50-85); Total Cells Counted 100
[2017-02-10 06:58] LABS: Hypochromasia 1+; Microcytosis 1+
--- NOTE | 2017-02-10 07:18 | Hospitalist Progress Note ---
Assessment and Plan (1) Depression Status: Chronic Current Visit: No Qualifiers: Depression Type: major depressive disorder Major depression recurrence: recurrent Active/Remission status: currently active Major depression episode severity: severe Psychotic features: without psychotic features Qualified Code(s): F33.2 - Major depressive disorder, recurrent severe without psychotic features (2) Fracture, intertrochanteric, left femur Status: Acute Assessment and plan: Surgical repair 06 February Severe gait instability with previous fall episode November 2016 with injury. Current Visit: Yes Hospitalist: Subjective Interval history: 81-year-old female with frequent falls sustaining a non-syncopal fall with left hip fracture. The patient was repaired surgically on 06 February. Patient had been hospitalized in November for a another fall which resulted in a commuted fracture of her right humeral head and a fracture of the right elbow as well as pelvic fracture. She did receive a transfusion yesterday for hemoglobin of 8.4 with appropriate rise in hemoglobin this morning. Her vital signs are stable. Exam - Constitutional Vitals: Period Temp Pulse Resp BP Sys/Santoyo Pulse Ox Last 24 Hr 97.3 F-99.8 F 94-117 16-20 92-130/49-82 92-100 General appearance: under weight - Respiratory Respiratory exam: Present: clear to auscultation bilaterally. Absent: rales, rhonchi, wheezes - Cardiovascular Cardiovascular exam: Present: regular rate and rhythm. Absent: systolic murmur (Basilar left lower sternal border murmur with arch radiation) - GI/Abdominal GI/Abdominal exam: Present: normal bowel sounds. Absent: distended, tenderness - Extremities Exam Extremities exam: Absent: edema - Neurological Exam Neurological exam: Present: alert. Absent: oriented X3 Results - Labs CBC & BMP: 02/10/17 05:47 02/09/17 04:13
[2017-02-10] MEDS: cefTRIAXone 1,000 MG in SODIUM CHLORIDE 0.9% 100 ML IV SCH (08:43)
[2017-02-10] MEDS: ENOXAPARIN 30 MG/0.3 ML SYRINGE SUBCUT SCH (08:44)
[2017-02-10] MEDS: DULoxetine 30 MG CAPSULE PO SCH (08:44)
[2017-02-10] MEDS: THEOPHYLLINE ER (24 HR) 300 MG CAPSULE PO SCH (08:44)
[2017-02-10] MEDS: cycloSPORINE OPH EMUL 1 VIAL BOTH EYES SCH ×3 (10:18→21:22)
--- NOTE | 2017-02-10 14:39 | Orthopedic Progress Note ---
Orthopedics - Subjective Interval history: Comfortable hemoglobin over 11 did well with PT today possible to swing bed soon Exam - Constitutional Vitals: Period Temp Pulse Resp BP Sys/Santoyo Pulse Ox Last 24 Hr 97.7 F-99.8 F 96-111 16-20 102-145/49-82 92-99 Results - Labs CBC & BMP: 02/10/17 05:47 02/09/17 04:13
[2017-02-10] MEDS: MONTELUKAST 10 MG TABLET PO SCH (21:19)
[2017-02-10] MEDS: GABAPENTIN 300 MG CAPSULE PO SCH (21:19)
[2017-02-10] MEDS: ATORVASTATIN 20 MG TABLET PO SCH (21:19)
--- NOTE | 2017-02-11 07:57 | Discharge Summary ---
Hospital Course - Hospital Course Hospital Course: 81-year-old female with frequent falls sustaining a non-syncopal fall with left hip fracture on admission. This was repaired surgically on 06 February. She has chronic anemia and did require a postop transfusion of packed red blood cells. Her clinical course was stable. The patient has a significant depressive/ dementing illness and is being released to for physical rehabilitation within a supervised setting today. Diagnosis - Discharge Diagnosis (1) Depression Status: Chronic (2) Fracture, intertrochanteric, left femur Status: Acute Discharge Plan - Discharge Data Disposition: Disch/Xfer to Snf Condition at Discharge: Stable Discharge Diet: advance to your usual diet Activity: as per physical therapy - Discharge Medications Continue cycloSPORINE OPH EMUL [Restasis] 1 drop BOTH EYES BID Montelukast Tab [Singulair Tab] 10 mg PO BEDTIME Atorvastatin [Lipitor] 20 mg PO BEDTIME Gabapentin Cap/Tab [Neurontin Cap/Tab] 300 mg PO BEDTIME Albuterol Sulfate [Ventolin HFA] 2 puff INH Q4H PRN PRN Reason: Shortness Of Breath/Wheezing Duloxetine HCl [Duloxetine] 30 mg PO DAILY traZODone [Desyrel] 150 mg PO BEDTIME Theophylline ER Cap (24 Hr) [Armani-24] 300 mg PO DAILY Cetirizine Tab [ZyrTEC Tab] 10 mg PO BEDTIME PRN PRN Reason: Allergy Symptoms Discontinued Potassium Chloride Cap/Tab [Micro K] 8 meq PO DAILY #30 capsule HYDROcodone/ACETAMIN 10-325 [[place] 10-325] 1 tablet PO TID PRN tablet PRN Reason: Pain Moderate (4-7) - Follow Up or Referral - Forms/Instructions Exam - Constitutional Vitals: Period Temp Pulse Resp BP Sys/Santoyo Pulse Ox Last 24 Hr 97.8 F-98.4 F 91-102 16-20 102-140/54-76 91-100 Discharge Results Procedures and tests throughout hospitalization: Pending Orders 02/06/17 Red Blood Cells Leuko Red Stat DS: Provider Date of admission: 02/06/17 11:58 Primary care physician: . No PCP Attending physician on admission: Chandrika Stafford MD Consults: 02/06/17 15:53 Consult to Physical Therapy [CONS] Routine Reason for Physical Therapy: Evaluate and Treat Start Therapy: Tomorrow Consult Comment: max assist, wbat to LLE 02/06/17 15:56 Consult to Case Mgmt/Social Srvs [CONS] Routine Reason for Case Mgmt/Social Srvs: Rehab Equipment Home Health Consult to Occupational Therapy [CONS] Routine Reason for Occupational Therapy: Evaluate and Treat 02/06/17 17:26 Consult to Occupational Therapy [CONS] Routine Reason for Occupational Therapy: Evaluate and Treat Consult to Physical Therapy [CONS] Routine Reason for Physical Therapy: Evaluate and Treat Consult Comment: ANNIKA turner, WBAT to LLE Discharging clinician: Cristian Lowe MD Expected date of discharge: 02/11/17
--- NOTE | 2017-02-11 08:56 | Orthopedic Progress Note ---
Orthopedics - Subjective Interval history: No complaints comfortable dressing is dry ready for rehab Exam - Constitutional Vitals: Period Temp Pulse Resp BP Sys/Santoyo Pulse Ox Last 24 Hr 97.8 F-98.4 F 91-102 16-20 102-140/54-76 91-100 Results - Labs CBC & BMP: 02/10/17 05:47 02/09/17 04:13
[2017-02-11] MEDS: ENOXAPARIN 30 MG/0.3 ML SYRINGE SUBCUT SCH (09:24)
[2017-02-11] MEDS: cycloSPORINE OPH EMUL 1 VIAL BOTH EYES SCH (09:24)
[2017-02-11] MEDS: THEOPHYLLINE ER (24 HR) 300 MG CAPSULE PO SCH (09:24)
[2017-02-11] MEDS: DULoxetine 30 MG CAPSULE PO SCH (09:24)
[2017-02-11] MEDS: cefTRIAXone 1,000 MG in SODIUM CHLORIDE 0.9% 100 ML IV SCH (09:25)
[2017-02-11 11:54] VITALS: BP 141/67
== END 2017-02-11 14:05 | DRG 481 ==
LOC: EDUNIT# → N.ED 10:37 → SUATTDRO 11:58 → N.EDINP 11:58 → N.3E 13:21
PROVIDERS: ADMIT Internal Medicine; ATTEND Internal Medicine Cardiovascular Disease